=== PATIENT | male | born 1970 ===

== ENCOUNTER 2017-03-06 08:36 | Emergency (ER) | payer MEDICARE ==
[2017-03-06 09:18] VITALS: BP 117/71; PULSE 56; RESP 18; TEMP 98.8; O2SAT 97
[2017-03-06] MEDS ORDERED: Tetracaine 0.5% Ophth 2 ML BOTTLE OD ONE (09:33)
[2017-03-06] MEDS ORDERED: Fluorescein 1 mg Ophthalmic Strip OD ONE (09:33)
[2017-03-06] MEDS ORDERED: Tetracaine 0.5% Ophth (OR ONLY) ONE (09:38)
[2017-03-06] MEDS ORDERED: Fluorescein 1 mg Ophthalmic Strip ONE (09:38)
--- NOTE | 2017-03-06 09:50 | C.PDOC ---
History Of Present Illness 46 y/o male presents to the ED with complains of foreign body sensation to left eye. Pt states he feels like there is something in superior medial aspect of eye. States he was working under a car this morning with possible dust or possible metallic dust. Pain is 8/10 sharp and constant, increases with movement of the eye. Pt denies headache, neck pain, fever, chills or any other complaints. Time Seen by Provider: 03/06/17 09:08 Chief Complaint (Nursing): ENT Problem History Per: Patient History/Exam Limitations: None Onset/Duration Of Symptoms: Hrs Current Symptoms Are (Timing): Still Present Symptoms Have Been: Continuous Severity: Severe Pain Scale Rating Of: 8 Anticoagulant/Antiplatlet Use?: No Past Medical History Reviewed: Historical Data, Nursing Documentation, Vital Signs Vital Signs: Last Vital Signs Temp 98.8 F 03/06/17 09:09 Pulse 56 L 03/06/17 09:09 Resp 18 03/06/17 09:57 BP 117/71 03/06/17 09:09 Pulse Ox 97 03/06/17 10:05 Family History: States: Unknown Family Hx - Social History Hx Alcohol Use: No Hx Substance Use: No - Immunization History Hx Tetanus Toxoid Vaccination: No Hx Influenza Vaccination: No Hx Pneumococcal Vaccination: No Review Of Systems Except As Marked, All Systems Reviewed And Found Negative. Constitutional: Negative for: Fever, Chills Eyes: Positive for: Other (foreign body sensation and pain to left eye). Negative for: Vision Change Musculoskeletal: Negative for: Neck Pain Neurological: Negative for: Headache Physical Exam - Physical Exam Appears: Non-toxic, No Acute Distress Skin: Warm, Dry, No Rash Head: Atraumatic, Normacephalic Eye(s): bilateral: PERRL, EOMI, left: Eyelid Inflammation (upper and lower lid) , Other (normal eye inspection, no gashes, bleeding or oozing. No foreign body visualized) Nose: Normal Extremity: Bilateral: Atraumatic Neurological/Psych: Oriented x3, Normal Speech ED Course And Treatment O2 Sat by Pulse Oximetry: 97 (on room air) Pulse Ox Interpretation: Normal Eye Treatment - Treatment Performed Eye Treatment: Other: (Irrigated eye with 1 L saline, patient still has sensation foreign body. Fluoroscein strips and tetracaine with no uptake. 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 Disposition Discussed With Dr.: Que Escalera Doctor Will See Patient In The: Office - Disposition Referrals: Que Escalera MD [Staff Provider] - Disposition: HOME/ ROUTINE Disposition Time: 09:48 Condition: GOOD Additional Instructions: Please follow up with ophthalmology right away Instructions: Eye Foreign Body (ED) Forms: General Discharge Instructions - POA Present On Arrival: None - Clinical Impression Clinical Impression: Acute foreign body of eye - Scribe Statement The provider has reviewed the documentation as recorded by the Balwinder Duran Provider Attestation: All medical record entries made by the Balwinder were at my direction and personally dictated by me. I have reviewed the chart and agree that the record accurately reflects my personal performance of the history, physical exam, medical decision making, and the department course for this patient. I have also personally directed, reviewed, and agree with the discharge instructions and disposition.
== END 2017-03-06 10:00 | disposition home or self-care (01) ==
LOC: C.ER 08:36
DX: T15.92XA Foreign body on external eye, part unspecified, left eye, initial encounter (principal); X58.XXXA Exposure to other specified factors, initial encounter